=== PATIENT | female | born 1960 | race Caucasian/White ===

== ENCOUNTER 2023-03-09 19:21 | Emergency (ER) | payer OTHER, SELFPAY ==
[2023-03-09 19:33] VITALS: BP 189/95; PULSE 75; RESP 16; TEMP 36.6; O2SAT 98; BMI 28.1
[2023-03-09 19:40] LABS: Appearance Urine Clear (Clear); Bilirubin Urine Negative (Negative); Blood Urine 2+ (Negative); Color Urine Yellow (Yellow); Glucose Urine Negative (Negative); Ketones Urine Negative (Negative); Leukocyte Esterase Urine Negative (Negative); Nitrite Urine Negative (Negative); Protein Urine Negative (Negative); Specific Gravity Urine <= 1.005 (1.000-1.030); Urobilinogen Urine 0.2 (0.2-1.0)
--- NOTE | 2023-03-09 20:22 | ED_ITS ---
HPI - Female Genitourinary General Time Seen by Provider: 20:22 Date Seen: 03/09/23 Chief complaint: Vaginal Bleeding Stated complaint: Vaginal bleeding Time Seen by Provider: 03/09/23 20:22 Source: patient and RN notes reviewed Mode of arrival: ambulatory Limitations: no limitations History of Present Illness HPI Narrative: Patient is a very pleasant 62-year-old female with history of tobacco use, hypertension and daily aspirin who comes to the emergency room for vaginal bleeding. Patient notes that she had vaginal bleeding that involve some small clots lasting approximately 1-1/2 hour today. This was not associated with any pain. Patient states that she occasionally does get lightheaded but she denies shortness of breath, nausea vomiting or abdominal discomfort. She notes that the bleeding has now stopped. She denies dysuria or hematuria. She has not had any recent trauma to the vaginal area to include falls, sexual activity or tampon use. Patient notes her last period was in 2007. Last sexual activity was 4-5 months ago. She is not currently on hormones. Related Data Home Medications Medication Instructions Recorded Confirmed aspirin 81 mg tablet,delayed 81 mg PO QDAY 07/24/22 08/22/22 release (Adult Low Dose Aspirin) Previous Rx's Medication Instructions Recorded lisinopril 40 mg tablet 40 mg PO QDAY #90 tabs 08/22/22 Allergies Allergy/AdvReac Type Severity Reaction Status Date / Time No Known Drug Allergies Allergy Verified 08/22/22 08:30 Review of Systems Status of ROS: Reports: 10 or more systems reviewed and unremarkable except as noted in History and below Const: Denies: fever, chills, change in weight or fatigue ENMT: Denies: difficulty swallowing Cardio: Reports: lightheadedness; Denies: chest pain, palpitations or shortness of breath with exertion Resp: Denies: shortness of breath or cough GI: Denies: abdominal pain, nausea, vomiting, difficulty swallowing or change in stool character : Reports: urinary incontinence (Chronic) and vaginal bleeding; Denies: painful urination, urinary frequency or pelvic pain Musculo: Denies: back pain Endo: Denies: fatigue PFSH PFSH Surgical History S/P tonsillectomy and adenoidectomy ?Z90.89 - Acquired absence of other organs (ICD-10) Status post open reduction and internal fixation (ORIF) of fracture ?Z98.890 - Other specified postprocedural states (ICD-10) ?Z87.81 - Personal history of (healed) traumatic fracture (ICD-10) Family History Father Diabetes Other Breast cancer Social History Smoking Status: Current every day smoker Non-prescribed substance use: denies use Exam Narrative: Exam Narrative: Patient is alert and oriented. Nontoxic in appearance. Eyes are clear. Speaking normally. No respiratory distress. Heart with regular rate and rhythm. Lungs are clear. Abdomen is soft nontender. Moving all extremities. Const: Vital Signs, click to edit/add: Vital Signs - 24 hr 03/09/23 19:33 03/09/23 21:10 Temperature 97.8 F Pulse Rate [Right Pulse Oximeter] 75 77 Respiratory Rate 16 16 Blood Pressure [Ri ght Upper Arm] 189/95 H 183/96 H Pulse Oximetry 98 98 Oxygen Delivery Me thod Room Air Room Air Documenting provider has reviewed patient's vital signs: yes Course Course ED Course: At this time patient has postmenopausal bleeding. Differential diagnosis includes vaginal trauma which she denies, cervical lesion, endometrial hyperplasia, uterine fibroids, cancer,. Will obtain CBC, basic panel, TSH. Urinalysis is already been obtained. Will also order pelvic ultrasound and then on plan on consult with OBGYN. Vital Signs Vital signs: Initial Vital Signs Temperature 97.8 F 03/09/23 19:33 Temperature Source Temporal Artery Scan 03/09/23 19:33 Pulse Rate 75 03/09/23 19:33 Pulse Rhythm Regular 03/09/23 19:33 Respiratory Rate 16 03/09/23 19:33 Blood Pressure 189/95 H 03/09/23 19:33 Blood Pressure Mean 126 H 03/09/23 19:33 Blood Pressure Position Sitting 03/09/23 19:33 Pulse Oximetry 98 03/09/23 19:33 Oxygen Delivery Method Room Air 03/09/23 19:33 Vital Signs Temperature 97.8 F 03/09/23 19:33 Pulse Rate 75 03/09/23 19:33 Respiratory Rate 16 03/09/23 19:33 Blood Pressure 189/95 H 11/27/23 19:33 Pulse Oximetry 98 03/09/23 19:33 Oxygen Delivery Method Room Air 03/09/23 19:33 Temperature 97.8 F 03/09/23 19:33 Pulse Rate 77 03/09/23 21:10 Respiratory Rate 16 03/09/23 21:10 Blood Pressure 183/96 H 03/09/23 21:10 Pulse Oximetry 98 03/09/23 21:10 Oxygen Delivery Method Room Air 03/09/23 21:10 MDM - Female Genitourinary MDM Narrative Medical decision making narrative: 1. Postmenopausal bleeding-this most likely stems from a 2 cm soft tissue lesion in the lower uterine/cervical segment. Bleeding has not returned and lasted 1-1/2 hour earlier. Hemoglobin 11.9. At this time I do state consult with Dr. CUMMINGS, OBGYN road consultant. Patient will call for appoint with OBGYN tomorrow. Dr. Cummings suggests hysteroscopy. 2. Tobacco use-advised abstinence. 3. Hypokalemia-3.1 today. We discussed potassium rich foods which I would like Jen to increase intake of. 4. Disposition-home. Return for worsening symptoms. Excessively persistent bleeding associated with shortness of breath or lightheadedness. Medical Records Attestation: I reviewed the patient's medical records. Lab Data Attestation: I reviewed the patient's lab results. Labs: Lab Results 03/09/23 03/09/23 Range/Units 19:30 20:40 WBC 5.71 (4.50-11.00) K/uL RBC 3.76 L (4.00-5.20) m/uL Hgb 11.9 L (12.0-16.0) gm/dL Hct 36.0 (33.0-51.0) % MCV 96 (80-100) fL MCH 32 (26-34) pg MCHC 33 (32-36) gm/dL RDW Coeff of Peggy 12.9 (11.5-15.5) % Plt Count 167 (140-440) K/uL Neut % (Auto) 57.1 (42.0-72.0) % Lymph % (Auto) 30.1 (20-44) % [place] % (Auto) 10.3 (0.0-11.0) % Eos % (Auto) 1.8 (0.0-7.0) % Baso % (Auto) 0.7 (0.0-3.0) % Neut # (Auto) 3.26 (1.7-7.0) K/uL Lymph # (Auto) 1.72 (0.90-2.90) K/uL [place] # (Auto) 0.60 (0.00-0.90) K/UL Eos # (Auto) 0.10 (0.00-0.50) K/uL Baso # (Auto) 0.04 (0.00-0.30) K/uL Abs Immat Gran (auto) 0.00 (0.00-0.30) K/uL Imm/Tot Granulo (auto) 0.0 % Sodium 140 (135-149) mmol/L Potassium 3.1 L (3.6-5.1) mmol/L Chloride 105 (96-114) mmol/L Carbon Dioxide 25 (20-32) mmol/L Anion Gap 10 (7-15) mEq/L BUN 15 (7-30) mg/dL Creatinine 0.5 (0.5-1.5) mg/dL Estimated Creat Clear 59.40 Estimated GFR 105 ml/min Glucose 98 (60-115) mg/dL Calcium 8.9 (8.4-10.6) mg/dL TSH 0.735 (0.270-4.200) uIU/mL Urine Color Yellow (Yellow) Urine Appearance Clear (Clear) Urine pH 6.0 (5.0-8.5) Ur Specific [place] <= 1.005 (1.000-1.030) Urine Protein Negative (Negative) Urine Glucose (UA) Negative (Negative) Urine Ketones Negative (Negative) Urine Blood 2+ A (Negative) Urine Nitrite Negative (Negative) Urine Bilirubin Negative (Negative) Urine Urobilinogen 0.2 (0.2-1.0) Ur Leukocyte Esterase Negative (Negative) Urine RBC 2-5 A (0-2) Urine WBC 2-5 (0-5) Ur Squamous Epith Cells None (None-Few) Urine Bacteria None (None) Imaging Data Pelvic ultrasound: Attestation: I have reviewed the pertinent imaging results. Radiologist's impression: Uterus: 5 x 4 x 2 cm. Heterogeneous soft tissue mass emanating from the left lateral aspect of the lower uterine segment or cervix measures approximately 2 cm. Endometrium: Transvaginal imaging was performed to better evaluate the endometrium. Endometrial thickness measures 2 mm. Moderate amount of endometrial fluid. No mass evident. Right ovary not visualized. Left ovary not visualized. No ovarian or adnexal masses. Cul-de-sac: No significant free fluid. IMPRESSION: 1. An approximately 2 cm soft tissue mass is emanating from the left lateral aspect of the lower uterine segment or cervix. This could represent a fibroid but is indeterminate. 2. Moderate amount of endometrial fluid is abnormal for a postmenopausal patient. Discharge Plan Discharge Clinical Impression: Abnormal vaginal bleeding, Cervical mass Patient Disposition: Home, Self-Care Condition: Stable Additional Instructions: Follow up in the [facility] with Dr. Cummings. You have a growth on the cervix that they will need to evaluate. Call [phone], [facility] for a consult. Tell them that we spoke to Dr. Cummings who says you need an urgent appointment. Return as needed Your potassium is incidentally low - increase green vegetables, potatoes and other potassium rich foods. Prescriptions: No Action lisinopril 40 mg tablet 40 mg PO QDAY Qty: 90 3RF aspirin [Adult Low Dose Aspirin] 81 mg tablet,delayed release (DR/EC) 81 mg PO QDAY Follow Up/Referrals: Matthew Polo MD [Primary Care Provider] - Stand Alone Forms: [employer] Info Instructions
--- NOTE | 2023-03-09 20:31 | CRLHL7_ITS ---
For Patients: As a result of the Century Cures Act, medical imaging exams and procedure reports are released immediately into your electronic medical record. You may view this report before your referring provider. If you have questions, please contact your health care provider. INDICATION: Postmenopausal bleeding. TECHNIQUE: Ultrasound pelvis transabdominal and transvaginal for better assessment or to better visualize the endometrium. COMPARISON: None. FINDINGS: Uterus: 5 x 4 x 2 cm. Heterogeneous soft tissue mass emanating from the left lateral aspect of the lower uterine segment or cervix measures approximately 2 cm. Endometrium: Transvaginal imaging was performed to better evaluate the endometrium. Endometrial thickness measures 2 mm. Moderate amount of endometrial fluid. No mass evident. Right ovary not visualized. Left ovary not visualized. No ovarian or adnexal masses. Cul-de-sac: No significant free fluid. IMPRESSION: 1. An approximately 2 cm soft tissue mass is emanating from the left lateral aspect of the lower uterine segment or cervix. This could represent a fibroid but is indeterminate. 2. Moderate amount of endometrial fluid is abnormal for a postmenopausal patient. Dictated by Israel Seo MD @ 03/09/2023 9:25:55 PM (Electronically Signed)
[2023-03-09 20:45] LABS: Basophils Absolute Auto 0.04 K/uL (0.00-0.30); Basophils Percent Auto 0.7 % (0.0-3.0); Eosinophils Percent Auto 1.8 % (0.0-7.0); Hemoglobin* 11.9 gm/dL (12.0-16.0); Lymphocytes Absolute Auto 1.72 K/uL (0.90-2.90); Lymphocytes Percent Auto 30.1 % (20-44); Mean Corpuscular HGB Conc 33 gm/dL (32-36); Mean Corpuscular Hemoglobin 32 pg (26-34); Mean Corpuscular Volume 96 fL (80-100); Monocytes Percent Auto 10.3 % (0.0-11.0); Neutrophils Absolute Auto 3.26 K/uL (1.7-7.0); Neutrophils Percent Auto 57.1 % (42.0-72.0); Platelet Count* 167 K/uL (140-440); RDW Coefficient of Variation % 12.9 % (11.5-15.5); Red Blood Count 3.76 m/uL (4.00-5.20); White Blood Count* 5.71 K/uL (4.50-11.00)
[2023-03-09 20:46] LABS: Slide Review Reflex No
[2023-03-09 20:59] LABS: Chloride* 105 mmol/L (96-114); Potassium* 3.1 mmol/L (3.6-5.1); Sodium* 140 mmol/L (135-149)
[2023-03-09 21:01] LABS: Creatinine* 0.5 mg/dL (0.5-1.5); Estimated Glomerular Filt Rate 105 ml/min
[2023-03-09 21:02] LABS: Anion Gap 10 mEq/L (7-15); Blood Urea Nitrogen* 15 mg/dL (7-30); Calcium* 8.9 mg/dL (8.4-10.6); Carbon Dioxide* 25 mmol/L (20-32); Glucose* 98 mg/dL (60-115)
[2023-03-09 21:10] VITALS: BP 183/96; PULSE 77; RESP 16; O2SAT 98
[2023-03-09 21:45] LABS: TSH With Reflex to FT4* 0.735 uIU/mL (0.270-4.200)
== END 2023-03-09 21:59 | disposition home or self-care (01) ==
PROVIDERS: Emergency Provider Family Medicine; PCP Family Medicine
DX: N95.0 Postmenopausal bleeding (principal); N88.8 Other specified noninflammatory disorders of cervix uteri
CPT/HCPCS: 36415; 76830; 76856; 80048; 81001; 84443; 85025; 87086; 99283; 99284